=== PATIENT | male | born 1960 | race Caucasian/White ===

== ENCOUNTER → 2019-10-20 | Outpatient (CLI) | payer OTHER ==
--- NOTE | 2019-10-20 13:51 | RADIOLOGY REPORT (SQ) ---
EXAM DESCRIPTION: MRI LUMBAR SPINE WITHOUT COMPLETED DATE/TIME: 10/20/2019 8:57 am REASON FOR STUDY: (M54.5)LOW BACK PAIN M54.5 LOW BACK PAIN COMPARISON: MRI lumbar spine 01/11/2011 TECHNIQUE: Sagittal and Axial imaging includes T1, T2, STIR and gradient echo sequences. Coronal T2/ HASTE imaging. LIMITATIONS: None. FINDINGS: VISUALIZED UPPER ABDOMEN: Limited evaluation. No acute or suspicious findings suggested. SEGMENTATION: No transitional anatomy. The lowest well-developed disc space is labeled L5-S1. ALIGNMENT: Anatomic. VERTEBRAE: Intact. BONE MARROW: There are fatty reactive vertebral body endplate changes at L2-3, L3-4, and L4-5 DISC SIGNAL: Disc space loss of height with decreased T2 weighted signal at L4-5. POSTERIOR ELEMENTS: Old right micro laminectomy at L4 HARDWARE: None in the spine. CORD AND CONUS: Normal in size and signal intensity. Conus at the T12-L1 level. SOFT TISSUES: No aortic aneurysm seen. No bulky retroperitoneal adenopathy or mass. No paraspinal mas s or fluid. T10-11: At the upper edge of the field of view. Mild bilateral facet hypertrophy. No central or fo raminal stenosis. T11-12: Mild bilateral facet hypertrophy. No central or foraminal stenosis. T12-L1: Mild bilateral facet hypertrophy. No central or foraminal stenosis L1-L2: Mild bilateral facet hypertrophy. No central or foraminal stenosis L2-L3: Mild diffuse posterior disc bulging, moderate bilateral facet and ligament hypertrophy. Mild bilateral inferior foraminal narrowing. No central stenosis. L3-L4: Broad diffuse posterior disc bulge is present left greater than right with moderate bilateral facet hypertrophy. Borderline central canal narrowing. Mild inferior right foraminal stenosis. Mod erate left foraminal narrowing without exit L3 nerve root impingement L4-L5: Broad diffuse posterior disc bulging is present right greater than left. Small extruded fragm ent with inferior migration, flattening the thecal sac at the takeoff of the right L5 nerve root. Th is best shown on T1 axial image 16, T2 axial image 27. Old right laminectomy defect. Central canal decompressed. On the right side, moderate to marked foraminal narrowing results from asymmetric disc bulge and bony spurring. There is partial effacement of the fat around the exiting right L4 nerve root, best shown on sagittal images 2-6. Mild inferior left foraminal narrowing without exit nerve root impingement. L5-S1: Moderate bilateral facet hypertrophy is present. No central stenosis. SACRUM: Visualized upper sacrum intact. OTHER: No other significant findings. IMPRESSION: Old right L4 laminectomy defect. Significant right foraminal narrowing with partial eff acement of the fat around the exiting right L4 nerve root in the neural foramen. Soft tissue along t he right paracentral L4-5 disc margin worrisome for extruded disc fragment flattening the thecal sac at the takeoff of the right proximal L5 nerve root in the lateral recess. TECHNICAL DOCUMENTATION: JOB ID: [id number] [employer]- All Rights Reserved Reading location - IP/workstation name: [id number]
== END ==
LOC: RAD 07:46
PROVIDERS: ATTEND Nurse Practitioner Family
DX: M54.5 Low back pain (principal)
CPT/HCPCS: 72148